=== PATIENT | male | born 1955 | race Two or more races ===

== ENCOUNTER → 2016-08-24 | Outpatient (CLI) | payer BC ==
[~2016-08-24] MED LIST: OLME20TA19 PO; ROSU10TA16 PO
[2016-08-24 12:11] LABS: Urine Bilirubin Negative (Negative); Urine Blood TRACE /uL (Negative); Urine Color Yellow (Yellow); Urine Glucose Normal (Normal); Urine Ketone Negative (Negative); Urine Nitrite Negative (Negative); Urine Urobilinogen Normal (Negative)
[2016-08-24 12:54] LABS: BUN/Creatinine Ratio 27.8; Bilirubin, Direct 0.2 mg/dL (0-0.2); Bilirubin, Total 1.1 mg/dL (0.2-1.0); Calcium 9.1 mg/dL (8.5-10.1); Potassium 4.1 mmol/L (3.5-5.1); Total Protein 7.8 g/dL (6.4-8.2)
[2016-08-24 13:01] LABS: Basophils # (auto) 0 uL; Basophils % (auto) 0.4 % (0.0-2.0); Eosinophils # (auto) 0.1 uL; Eosinophils % (auto) 1.8 % (0.0-7.0); Hematocrit 44.3 % (41.0-53.0); Hemoglobin 15.1 g/dL (13.5-17.5); Lymphocytes # (auto) 2.3 uL; Lymphocytes % (auto) 42.1 % (10.0-50.0); Mean Corpuscular Hemoglobin 31.8 pg (28.0-32.0); Mean Corpuscular Volume 93.8 fL (80.0-100.0); Mean Platelet Volume 8.2 fL (7.4-10.4); Monocytes # (auto) 0.5 uL; Monocytes % (auto) 8.5 % (0.0-12.0); Neutrophils # (auto) 2.5 uL; Neutrophils % (auto) 47.2 % (37.0-80.0); Platelet Count (auto) 234 10^3/uL (140-450); Red Cell Distribution Width 12.6 % (11.6-16.0); White Blood Cell 5.4 10^3/uL (4.4-10.8)
== END | disposition home or self-care (01) ==
LOC: Rad HDHVI 08:36
PROVIDERS: ATTEND Internal Medicine Cardiovascular Disease
DX: I10 Essential (primary) hypertension (principal); E78.00 Pure hypercholesterolemia, unspecified; K74.1 Hepatic sclerosis; E11.9 Type 2 diabetes mellitus without complications; R97.20 Elevated prostate specific antigen [PSA]; R53.81 Other malaise; E03.9 Hypothyroidism, unspecified; D64.9 Anemia, unspecified; E55.9 Vitamin D deficiency, unspecified; N39.0 Urinary tract infection, site not specified
CPT/HCPCS: 36415; 71020; 80048; 80061; 80076; 81003; 82306; 83036; 84153; 84403; 84443; 85025

== ENCOUNTER → 2016-09-28 | Outpatient (CLI) | payer OTHER | END | disposition home or self-care (01) | LOC: Rad HDHVI 08:13 | PROVIDERS: ATTEND Internal Medicine Cardiovascular Disease | DX: I10 Essential (primary) hypertension (principal) | CPT/HCPCS: 93306 ==

== ENCOUNTER → 2016-10-04 | Outpatient (CLI) | payer OTHER ==
[~2016-10-04] VITALS: Ht 165.1 cm; Wt 104.3 kg
== END | disposition home or self-care (01) ==
LOC: Rad HDHVI 07:44
PROVIDERS: ATTEND Internal Medicine Cardiovascular Disease
DX: I10 Essential (primary) hypertension (principal); E78.00 Pure hypercholesterolemia, unspecified; E78.5 Hyperlipidemia, unspecified; Z86.010 Personal history of colon polyps
CPT/HCPCS: 78452; 93017; 96374; A9500

== ENCOUNTER → 2018-11-10 | Outpatient (CLI) | payer BC, OTHER | END | disposition home or self-care (01) | LOC: Rad HDHVI 08:56 | PROVIDERS: ATTEND Internal Medicine Cardiovascular Disease | DX: M79.642 Pain in left hand (principal) | CPT/HCPCS: 73130 ==

== ENCOUNTER → 2018-11-22 | Outpatient (CLI) | payer BC | END | disposition home or self-care (01) | LOC: Rad HDHVI 07:57 | PROVIDERS: ATTEND Internal Medicine Cardiovascular Disease | DX: I34.0 Nonrheumatic mitral (valve) insufficiency (principal); I11.9 Hypertensive heart disease without heart failure; I20.0 Unstable angina | CPT/HCPCS: 93306 ==

== ENCOUNTER → 2018-12-27 | Outpatient (CLI) | payer BC ==
[~2018-12-27] VITALS: Ht 175.3 cm; Wt 98.0 kg
[2018-12-27 12:38] LABS: Urine Blood Negative /uL (Negative); Urine Specific Gravity 1.021 (1.001-1.035)
[2018-12-27 12:47] LABS: Basophils # (auto) 0 uL; Basophils % (auto) 0.4 % (0.0-2.0); Eosinophils # (auto) 0.1 uL; Eosinophils % (auto) 1.7 % (0.0-7.0); Hemoglobin 15.1 g/dL (13.5-17.5); Lymphocytes # (auto) 2.1 uL; Lymphocytes % (auto) 43.4 % (10.0-50.0); Mean Corpuscular Hemoglobin 33.9 pg (28.0-32.0); Mean Corpuscular Volume 96.8 fL (80.0-100.0); Monocytes # (auto) 0.5 uL; Monocytes % (auto) 9.3 % (0.0-12.0); Neutrophils # (auto) 2.2 uL; Neutrophils % (auto) 45.2 % (37.0-80.0); Nucleated Red Blood Cells % 0.3 %; Platelet Count (auto) 227 10^3/uL (140-450); Red Blood Cells 4.45 10^6/uL (4.5-5.90); Red Cell Distribution Width 13.2 % (11.8-14.3); White Blood Cell 4.9 10^3/uL (4.4-10.8)
[2018-12-27 12:52] LABS: Potassium 3.8 mmol/L (3.5-5.1)
[2018-12-27 12:53] LABS: Free T4 (Free Thyroxine) 1.15 ng/dL (0.89-1.76); Prostate Specific Antigen 1.85 ng/mL (0.0-4.0)
[2018-12-27 13:31] LABS: BUN/Creatinine Ratio 28.4; Bilirubin, Total 1.1 mg/dL (0.2-1.0); Total Protein 7.8 g/dL (6.4-8.2)
== END | disposition home or self-care (01) ==
LOC: Rad HDHVI 08:00
PROVIDERS: ATTEND Internal Medicine Cardiovascular Disease
DX: Z00.00 Encounter for general adult medical examination without abnormal findings (principal); E03.9 Hypothyroidism, unspecified; E11.9 Type 2 diabetes mellitus without complications; C61 Malignant neoplasm of prostate; D51.9 Vitamin B12 deficiency anemia, unspecified; N39.0 Urinary tract infection, site not specified; E29.1 Testicular hypofunction; E55.9 Vitamin D deficiency, unspecified; I20.0 Unstable angina; M06.9 Rheumatoid arthritis, unspecified; R00.2 Palpitations; R00.0 Tachycardia, unspecified; Z79.899 Other long term (current) drug therapy
CPT/HCPCS: 36415; 78452; 80053; 80061; 81003; 82306; 82607; 83036; 84153; 84403; 84439; 84443; 85025; 86225; 86235; 93017; 96374; A9500

== ENCOUNTER → 2020-03-05 | Outpatient (CLI) | payer BC ==
[~2020-03-05] MED LIST changes: -OLME20TA19 PO; +OLME20TA53 PO
[2020-03-05 12:35] VITALS: BP 118/70
[2020-03-05 12:45] VITALS: BP 122/70
[2020-03-05 15:57] LABS: Basophils # (auto) 0 10 ^3/uL (0-0.2); Basophils % (auto) 0.3 % (0.0-2.0); Eosinophils # (auto) 0 10 ^3/uL (0-0.8); Eosinophils % (auto) 0.2 % (0.0-7.0); Hematocrit 43.4 % (41.0-53.0); Hemoglobin 14.5 g/dL (13.5-17.5); Lymphocytes # (auto) 2.1 10 ^3/uL (0.4-5.4); Lymphocytes % (auto) 18.6 % (10.0-50.0); Mean Corpuscular Hemoglobin 32.4 pg (28.0-32.0); Mean Corpuscular Hgb Conc. 33.4 g/dL (32.0-36.0); Mean Corpuscular Volume 96.9 fL (80.0-100.0); Monocytes # (auto) 1.2 10 ^3/uL (0-1.3); Monocytes % (auto) 10.3 % (0.0-12.0); Neutrophils % (auto) 70.6 % (37.0-80.0); Nucleated Red Blood Cells % 0.2 %; Platelet Count (auto) 232 10^3/uL (140-450); Red Blood Cells 4.48 10^6/uL (4.5-5.90); Red Cell Distribution Width 13.3 % (11.8-14.3); White Blood Cell 11.3 10^3/uL (4.4-10.8)
[2020-03-05 15:59] LABS: Calcium 9.6 mg/dL (8.5-10.1); Magnesium 2.3 mg/dL (1.6-2.6); Potassium 3.9 mmol/L (3.5-5.1)
[2020-03-05 16:28] LABS: INR 1.22 (0.9-1.15); Partial Thromboplastin Time 37.1 sec (23.64-32.05)
== END | disposition home or self-care (01) ==
LOC: Rad HDHVI 11:57
PROVIDERS: ATTEND Internal Medicine Cardiovascular Disease
DX: Z01.812 Encounter for preprocedural laboratory examination (principal); I70.0 Atherosclerosis of aorta; I10 Essential (primary) hypertension; D64.9 Anemia, unspecified; R79.1 Abnormal coagulation profile
CPT/HCPCS: 36415; 71046; 80048; 83735; 85025; 85610; 85730; G0463

== ENCOUNTER → 2020-03-18 | Outpatient (CLI) | payer BC ==
[~2020-03-18] VITALS: Ht 175.3 cm; Wt 103.9 kg
== END | disposition home or self-care (01) ==
LOC: Rad HDHVI 13:14
PROVIDERS: ATTEND Internal Medicine Cardiovascular Disease
DX: I10 Essential (primary) hypertension (principal); E78.00 Pure hypercholesterolemia, unspecified; R07.9 Chest pain, unspecified; R42 Dizziness and giddiness
CPT/HCPCS: 78452; 93017; 96374; A9500

== ENCOUNTER → 2020-03-19 | Outpatient (CLI) | payer BC | END | disposition home or self-care (01) | LOC: Rad HDHVI 07:57 | PROVIDERS: ATTEND Internal Medicine Cardiovascular Disease | DX: I08.1 Rheumatic disorders of both mitral and tricuspid valves (principal); I48.0 Paroxysmal atrial fibrillation; I49.3 Ventricular premature depolarization; E78.00 Pure hypercholesterolemia, unspecified | CPT/HCPCS: 93306 ==

== ENCOUNTER → 2020-03-26 | Outpatient (CLI) | payer BC ==
[2020-03-26 12:52] LABS: Urine Blood Negative /uL (Negative); Urine Specific Gravity 1.022 (1.001-1.035)
== END | disposition home or self-care (01) ==
LOC: LAB 12:42
PROVIDERS: ATTEND Internal Medicine Cardiovascular Disease
DX: N39.0 Urinary tract infection, site not specified (principal)
CPT/HCPCS: 81003

== ENCOUNTER → 2020-04-01 | Outpatient (CLI) | payer BC | END | disposition home or self-care (01) | LOC: Rad HDHVI 08:37 | PROVIDERS: ATTEND Internal Medicine Cardiovascular Disease | DX: N20.0 Calculus of kidney (principal); I70.0 Atherosclerosis of aorta; R31.9 Hematuria, unspecified; K44.9 Diaphragmatic hernia without obstruction or gangrene; K57.30 Diverticulosis of large intestine without perforation or abscess without bleeding; N40.0 Benign prostatic hyperplasia without lower urinary tract symptoms; M51.37 Other intervertebral disc degeneration, lumbosacral region | CPT/HCPCS: 74176 ==

== ENCOUNTER → 2022-09-27 | Outpatient (CLI) | payer OTHER, BC ==
[2022-09-27 12:13] VITALS: BP 129/84
[2022-09-27 12:25] VITALS: BP 132/80
[2022-09-27 16:43] LABS: Basophils # (auto) 0 10 ^3/uL (0-0.2); Basophils % (auto) 0.7 % (0.0-2.0); Calcium 8.9 mg/dL (8.5-10.1); Eosinophils # (auto) 0.1 10 ^3/uL (0-0.8); Hematocrit 45.7 % (41.0-53.0); Hemoglobin 16.1 g/dL (13.5-17.5); Lymphocytes # (auto) 2.1 10 ^3/uL (0.4-5.4); Lymphocytes % (auto) 31.9 % (10.0-50.0); Mean Corpuscular Hemoglobin 34.8 pg (28.0-32.0); Mean Corpuscular Hgb Conc. 35.2 g/dL (32.0-36.0); Mean Corpuscular Volume 98.8 fL (80.0-100.0); Monocytes # (auto) 0.6 10 ^3/uL (0-1.3); Monocytes % (auto) 8.6 % (0.0-12.0); Neutrophils # (auto) 3.9 10 ^3/uL (1.6-8.6); Neutrophils % (auto) 57.8 % (37.0-80.0); Nucleated Red Blood Cells % 0.2 %; Potassium 3.8 mmol/L (3.5-5.1); Red Blood Cells 4.63 10^6/uL (4.5-5.90); Red Cell Distribution Width 12.4 % (11.8-14.3); White Blood Cell 6.7 10^3/uL (4.4-10.8)
[2022-09-27 16:45] LABS: BUN/Creatinine Ratio 23.6
[2022-09-27 16:53] LABS: INR 1.01 (0.9-1.15); Partial Thromboplastin Time 28.8 sec (24.6-33.4)
== END | disposition home or self-care (01) ==
LOC: Rad HDHVI 12:02
PROVIDERS: ATTEND Internal Medicine Cardiovascular Disease
DX: R06.02 Shortness of breath (principal)
CPT/HCPCS: 36415; 71046; 80048; 85025; 85610; 85730; 93005; G0463

== ENCOUNTER → 2022-10-11 | Outpatient (CLI) | payer MEDICARE, BC | END | disposition home or self-care (01) | LOC: Rad HDHVI 16:36 | PROVIDERS: ATTEND Internal Medicine Cardiovascular Disease | DX: M51.27 Other intervertebral disc displacement, lumbosacral region (principal); M47.814 Spondylosis without myelopathy or radiculopathy, thoracic region; M25.78 Osteophyte, vertebrae | CPT/HCPCS: 72131 ==